=== PATIENT | male | born 1995 | race Two or more races ===

== ENCOUNTER 2018-08-10 15:09 | Emergency (ER) | payer MEDICAID ==
[~2018-08-10] VITALS: Ht 172.7 cm; Wt 65.8 kg
[2018-08-10 15:24] VITALS: BP 117/74
== END 2018-08-10 16:51 | disposition home or self-care (01) ==
LOC: ER 15:15
DX: J20.9 Acute bronchitis, unspecified (principal); J02.9 Acute pharyngitis, unspecified; F17.210 Nicotine dependence, cigarettes, uncomplicated
CPT/HCPCS: 71046